=== PATIENT | female | born 1975 | race Hispanic/Latino ===

== ENCOUNTER → 2022-12-11 | Outpatient (CLI) | payer OTHER | END | disposition home or self-care (01) | LOC: RAH 13:24 | PROVIDERS: ATTEND Nurse Practitioner Women's Health | DX: Z12.31 Encounter for screening mammogram for malignant neoplasm of breast (principal) | CPT/HCPCS: 77067 ==

== ENCOUNTER 2023-12-05 19:21 | Emergency (ER) | payer OTHER ==
[~2023-12-05] VITALS: Ht 154.9 cm; Wt 88.5 kg
[2023-12-06 01:02] VITALS: BP 135/81; PULSE 82; RESP 20; O2SAT 96
[2023-12-06] MEDS: KETOROLAC 60 MG VIAL (30MG/ML) IM ONE (02:41)
[2023-12-06] MEDS: DIAZEPAM 5 MG/ML 2 ML SYG IM ONE (02:41)
[2023-12-06] MEDS ORDERED: NAPR-1192 PO (02:53)
[2023-12-06] MEDS ORDERED: CYCL10TA16 PO (02:53)
[2023-12-08] MEDS ORDERED: IPRATROPIUM/ALBUTEROL SULFATE 3 ML SOLUTION IH ONE (19:28)
== END 2023-12-06 03:01 | disposition home or self-care (01) ==
LOC: EDH 19:21
DX: M77.8 Other enthesopathies, not elsewhere classified (principal); M62.830 Muscle spasm of back; I10 Essential (primary) hypertension; Z88.0 Allergy status to penicillin; Z88.2 Allergy status to sulfonamides; Z98.84 Bariatric surgery status
CPT/HCPCS: 99284; 73060; 73030; 96372 ×2; J3360; J1885